=== PATIENT | female | born 1950 | race Caucasian/White ===

== ENCOUNTER 2020-12-12 10:11 | Outpatient (CLI) | payer MEDICARE, MEDICAID ==
[~2020-12-12 10:11] MED LIST: ALBU18HF2 IH; AMIT-50 PO; CA C1TAB58 PO; CA C1TAB69 PO; CETI-1 PO; CYCL-394 PO; DOCU250C34 PO; ESTR0.6261 PO; FURO-150 PO; HYDR2TAB28 PO; MAG400T PO; METH-603 PO; MONT10TA21 PO; PANT40TA39 PO; PLE50T PO; POTA10TA19 PO; SENN-263 PO; SIN25C PO; SUMA100T PO; SYN0.1T PO; TRAM50TA2 PO; ZOLP5TAB8 PO; [UNRECOGNIZED DRUG - CODE] PO; [UNRECOGNIZED DRUG - OTHER] INH
== END 2020-12-12 23:59 | disposition home or self-care (01) ==
LOC: RAD 10:11
PROVIDERS: ATTEND Psychiatry & Neurology Neurology
DX: G47.10 Hypersomnia, unspecified (principal); R53.1 Weakness; R53.83 Other fatigue
CPT/HCPCS: 95816

== ENCOUNTER 2021-09-14 05:27 | Day surgery (SDC) | payer MEDICARE, MEDICAID ==
[2021-09-04 17:02] LABS: BASOPHILS # (AUTO) 0.1 X10'3 (0-0.2); BASOPHILS % (AUTO) 0.7 % (0-1); EOSINOPHILS # (AUTO) 0.2 X10'3 (0-0.9); EOSINOPHILS % (AUTO) 2.3 % (0-6); LYMPHOCYTES # (AUTO) 2.3 X10'3 (1.1-4.8); LYMPHOCYTES % (AUTO) 23.6 % (21-51); MEAN CORPUSCULAR HEMOGLOBIN 27.8 PG (27.0-31.0); MEAN CORPUSCULAR HGB CONC 32.9 g/dL (33.0-36.5); MEAN CORPUSCULAR VOLUME 84.5 FL (78-98); MEAN PLATELET VOLUME 7.9 FL (7.4-10.4); MONOCYTES # (AUTO) 0.8 X10'3 (0-0.9); MONOCYTES % (AUTO) 7.8 % (2-12); NEUTROPHILS # (AUTO) 6.5 X10'3 (1.8-7.7); NEUTROPHILS % (AUTO) 65.6 % (42-75); PRE OP HEMATOCRIT 39.6 % (35.0-45.0); PRE OP PLATELET COUNT 366 X10'3 (140-440); RED BLOOD COUNT 4.69 X10'6 (4.20-5.60); RED CELL DISTRIBUTION WIDTH 14.4 % (11.5-14.5)
[2021-09-04 17:19] LABS: ALBUMIN 3.3 G/DL (3.4-5.0); ALBUMIN/GLOBULIN RATIO 0.8 (1.1-1.5); ALKALINE PHOSPHATASE 119 IU/L (46-116); BLOOD UREA NITROGEN 17 MG/DL (7-18); BUN/CREATININE RATIO 19.5 (6.6-38.0); CALCIUM 9.2 MG/DL (8.5-10.1); CHLORIDE 103 MMOL/L (99-107); CREATININE 0.87 MG/DL (0.40-0.90); PRE OP ALT 16 U/L (30-65); PRE OP ANION GAP 8 (8-16); PRE OP AST 13 U/L (10-37); PRE OP BILIRUB, TOTAL 0.3 MG/DL (0.0-1.0); PRE OP GLUCOSE 98 MG/DL (70-104); PRE OP POTASSIUM 3.4 MMOL/L (3.4-5.1); PRE OP SODIUM 143 MMOL/L (135-145); TOTAL CARBON DIOXIDE 32.1 MMOL/L (24-32); TOTAL PROTEIN 7.4 G/DL (6.4-8.2); eGFR 65 ML/MIN
[~2021-09-14] VITALS: Ht 160 cm; Wt 72.6 kg
[2021-09-14] VITALS (19 sets, daily range): BP systolic 95–132; BP diastolic 56–99
[~2021-09-14 05:27] MED LIST changes: -AMIT-50 PO; +BIOT5000 PO; -CA C1TAB58 PO; -CETI-1 PO; -CYCL-394 PO; -DOCU250C34 PO; +EST1T PO; -ESTR0.6261 PO; +FAMO20TA8 PO; +FERR240T5 PO; +LORA10TA7 PO; +LYR25C PO; -MAG400T PO; +MAGN400C PO; -METH-603 PO; +POTA-192 PO; -POTA10TA19 PO; +PRAM2.252 PO; +PROC-8 PO; -TRAM50TA2 PO; -ZOLP5TAB8 PO; -[UNRECOGNIZED DRUG - CODE] PO
[2021-09-14] MEDS ORDERED: famotidine 20mg tablet PO ONE (05:30)
[2021-09-14] MEDS ORDERED: ceFOXitin 2GM-NS 100mL ADDvant 100 ML IV ONE (05:30)
[2021-09-14] MEDS ORDERED: ringers solution, lacted 1,000 ML IV SCH ×2 (05:30→07:30)
[2021-09-14] MEDS ORDERED: LIDOcaine 1% (10mg/ml) 2ml vial ONE (06:16)
[2021-09-14] MEDS ORDERED: clindamycin phosphate 40gm vag cream ONE (06:53)
[2021-09-14] MEDS ORDERED: LIDOcaine 1% 30ml preserv. free vial ONE (06:53)
[2021-09-14] MEDS ORDERED: epiNEPHrine 1 mg/ml inj ONE (06:53)
[2021-09-14] MEDS ORDERED: ceFAZolin 1000mg inj ONE (06:53)
[2021-09-14] MEDS ORDERED: sevoflurane 250ml liquid IH ONE (07:28)
[2021-09-14] MEDS ORDERED: hydrALAZINE 20mg/ml inj. IV PRN (07:30)
[2021-09-14] MEDS ORDERED: acetaminophen 1,000mg/100ml IV 100 ML IV PRN (07:30)
[2021-09-14] MEDS ORDERED: proCHLORperazine 10 MG/2 ml inj IV PRN (07:30)
[2021-09-14] MEDS ORDERED: HYDROmorphone/PF 0.2 MG/ML SYRINGE IV PRN ×2 (07:30)
[2021-09-14] MEDS ORDERED: meperidine/PF 25mg/ml syringe IV PRN (07:30)
[2021-09-14] MEDS ORDERED: labetalol 20mg/4ml (5mg/ml) syringe IV PRN (07:30)
[2021-09-14] MEDS ORDERED: morphine 2 MG/ML inj. syringe IV PRN (07:30)
[2021-09-14] MEDS ORDERED: morphine 4 MG/ML inj SYRINge IV PRN (07:30)
[2021-09-14] MEDS ORDERED: midazolam 1 mg/ML 2ml injection ONE (07:37)
[2021-09-14] MEDS ORDERED: fentaNYL /PF 50mcg/ml 5ml ampule ONE (07:40)
[2021-09-14] MEDS ORDERED: propofol inj 20 ML IV ONE (09:19)
[2021-09-14] MEDS ORDERED: LIDOcaine 2% (20mg/ml) 5ml vial ONE (09:19)
[2021-09-14] MEDS ORDERED: dexamethasone sod phosphate 4mg/ml inj. ONE (09:19)
[2021-09-14] MEDS ORDERED: rocuronium 10mg/ml inj IV ONE (09:19)
[2021-09-14] MEDS ORDERED: glycopyrrolate 0.2mg/ml inj ONE (09:25)
[2021-09-14] MEDS ORDERED: neostigmine methylsulfate 1 MG/ML 10ml vial ONE (09:25)
--- NOTE | 2021-09-14 09:46 | NUR ---
Received from OR via BED, accompanied by Anesthesiologist and report given by Dr. Davidson Anesthesiologist. PATIENT'S UNCONSCIOUS WITH ORAL AIRWAY WITH SIMPLEMASK 15L, NO S/S OF PAIN, V/S WNL, SCD ON, 20G TO [facility] [place] Addendum: 09/14/21 at 1001 by Herson Paredes RN Amended: Links added.
--- NOTE | 2021-09-14 14:31 | NUR ---
PATIENT VOID 200CC OF PINK URINE. PATIENT A&OX4, DENIES PAIN, V/S WNL, SCD OFF, 20G TO LUE D/C. I HAVE REVIEWED D/C INSTRUCTIONS WITH PATIENT and they have verbalized understanding patient d/c home with all belongings and family gave transport home. Addendum: 09/14/21 at 1434 by Herson Paredes RN Amended: Links added.
== END 2021-09-14 14:31 | disposition home or self-care (01) ==
LOC: PAS 05:27
PROVIDERS: ATTEND Obstetrics & Gynecology
DX: N81.10 Cystocele, unspecified (principal); N39.3 Stress incontinence (female) (male); K21.9 Gastro-esophageal reflux disease without esophagitis; D64.9 Anemia, unspecified; M19.90 Unspecified osteoarthritis, unspecified site; J45.909 Unspecified asthma, uncomplicated; G43.909 Migraine, unspecified, not intractable, without status migrainosus; M81.0 Age-related osteoporosis without current pathological fracture; G89.29 Other chronic pain; Z88.8 Allergy status to other drugs, medicaments and biological substances; Z88.5 Allergy status to narcotic agent; Z79.899 Other long term (current) drug therapy; Z90.49 Acquired absence of other specified parts of digestive tract; Z90.710 Acquired absence of both cervix and uterus; Z96.651 Presence of right artificial knee joint; Z98.49 Cataract extraction status, unspecified eye; Z98.890 Other specified postprocedural states; Z82.49 Family history of ischemic heart disease and other diseases of the circulatory system; Z83.3 Family history of diabetes mellitus; Z80.0 Family history of malignant neoplasm of digestive organs
CPT/HCPCS: 36415; 57240; 57288; 80053; 82948; 85025; 86885; 86900; 86901; 93005; C1758; C1771; J0171; J0690; J0694; J1100; J1170; J2250; J2704; J2710; J3010; J3490; J7030; J7120; Z7506; Z7508; Z7512; A4355; A4618; A7000

== ENCOUNTER 2022-01-21 13:21 | Outpatient (CLI) | payer MEDICARE, MEDICAID ==
[~2022-01-21 13:21] MED LIST changes: -BIOT5000 PO
== END 2022-01-21 23:59 | disposition home or self-care (01) ==
LOC: RAD 13:21
PROVIDERS: ATTEND Anesthesiology
DX: Z01.818 Encounter for other preprocedural examination (principal); G89.4 Chronic pain syndrome
CPT/HCPCS: 93005

== ENCOUNTER 2022-01-24 13:24 | Outpatient (CLI) | payer MEDICARE, MEDICAID | END 2022-01-24 23:59 | disposition home or self-care (01) | LOC: RAD 13:24 | PROVIDERS: ATTEND Anesthesiology | DX: Z01.818 Encounter for other preprocedural examination (principal); G89.4 Chronic pain syndrome | CPT/HCPCS: 93005 ==

== ENCOUNTER → 2023-06-20 | Outpatient (CLI) | payer MEDICARE, MEDICAID ==
[~2023-06-20] MED LIST changes: +MONT-48 PO; -MONT10TA21 PO; -PRAM2.252 PO; +PRAM2.254 PO
== END | disposition home or self-care (01) ==
LOC: RAD 12:49
PROVIDERS: ATTEND Chiropractor
DX: M47.812 Spondylosis without myelopathy or radiculopathy, cervical region (principal); M48.02 Spinal stenosis, cervical region; M47.814 Spondylosis without myelopathy or radiculopathy, thoracic region; M48.04 Spinal stenosis, thoracic region; M25.78 Osteophyte, vertebrae; M40.40 Postural lordosis, site unspecified; M54.2 Cervicalgia; M99.01 Segmental and somatic dysfunction of cervical region; M99.02 Segmental and somatic dysfunction of thoracic region; M60.9 Myositis, unspecified; J98.11 Atelectasis; N28.1 Cyst of kidney, acquired
CPT/HCPCS: 72125; 72128